=== PATIENT | male | born 1975 | race Two or more races ===

== ENCOUNTER 2017-08-27 22:14 | Emergency (ER) | payer MEDICAID ==
[~2017-08-27] VITALS: Ht 182.9 cm; Wt 97.7 kg
[2017-08-27 22:16] VITALS: BP 163/109
[2017-08-27] MEDS ORDERED: HYDROcodone/APAP 5/325 TABLET PO STA (22:37)
[2017-08-27] MEDS ORDERED: HYDROcodone/APAP 5/325 TABLET ONE (22:43)
== END 2017-08-27 23:32 | disposition home or self-care (01) ==
LOC: ED 23:07
DX: K08.89 Other specified disorders of teeth and supporting structures (principal); F17.210 Nicotine dependence, cigarettes, uncomplicated
CPT/HCPCS: 99283

== ENCOUNTER 2017-09-27 15:32 | Emergency (ER) | payer MEDICAID ==
[~2017-09-27] VITALS: Ht 182.9 cm; Wt 97.0 kg
[2017-09-27 15:34] VITALS: BP 116/80
[2017-09-27] MEDS ORDERED: HYDROcodone/APAP 5/325 TABLET PO STA (16:30)
[2017-09-27] MEDS ORDERED: HYDROcodone/APAP 5/325 TABLET ONE (16:34)
== END 2017-09-27 17:49 | disposition home or self-care (01) ==
LOC: ED 16:58
DX: M79.672 Pain in left foot (principal); M79.671 Pain in right foot; G89.29 Other chronic pain
CPT/HCPCS: 93970; 99284

== ENCOUNTER 2018-07-08 17:30 | Emergency (ER) | payer MEDICAID ==
[~2018-07-08] VITALS: Ht 180.3 cm; Wt 90.6 kg
[2018-07-08 17:33] VITALS: BP 151/93
== END 2018-07-08 19:00 | disposition home or self-care (01) ==
LOC: ED 18:32
DX: B35.3 Tinea pedis (principal); L20.9 Atopic dermatitis, unspecified; F17.200 Nicotine dependence, unspecified, uncomplicated; Z88.1 Allergy status to other antibiotic agents
CPT/HCPCS: 82962; 99284

== ENCOUNTER 2018-11-18 19:56 | Emergency (ER) | payer MEDICAID, OTHER ==
[~2018-11-18] VITALS: Ht 182.9 cm; Wt 91.1 kg
[2018-11-18 20:01] VITALS: BP 134/84
--- NOTE | 2018-11-18 20:02 | NUR ---
CALLED FOR PT NO ANSWER IN TRIAGE X1
== END 2018-11-18 21:27 | disposition home or self-care (01) ==
LOC: ED 21:00
DX: B35.3 Tinea pedis (principal); F17.200 Nicotine dependence, unspecified, uncomplicated
CPT/HCPCS: 99283